=== PATIENT | female | born 1980 | race African-American/Black ===

== ENCOUNTER 2020-01-29 20:41 | Emergency (ER) | payer MEDICAID ==
[~2020-01-29] VITALS: Ht 162.6 cm; Wt 77.7 kg
[2020-01-30 01:08] LABS: BASOPHILS % 0.3 % (0.0-2.0); EOSINOPHILS % 0.3 % (0.0-5.0); HEMATOCRIT. 37.2 % (36.0-48.0); HEMOGLOBIN. 12.4 g/dL (12.0-16.0); LYMPHOCYTES % 23.9 % (20.0-50.0); MEAN CORPUSCULAR HEMOGLOBIN 27.4 pg (28.0-32.0); MEAN CORPUSCULAR VOLUME 82.2 fL (81.0-99.0); MEAN PLATELET VOLUME 8.3 fl (7.4-10.4); MONOCYTES % 6.2 % (2.0-8.0); NEUTROPHILS % 69.3 % (40.0-76.0); PLATELET 221 x1000/uL (130-400); RED BLOOD CELL COUNT 4.53 mill/uL (4.2-5.4); RED CELL DISTRIBUTION WIDTH 14.8 % (11.6-14.6)
[2020-01-30 01:14] LABS: CHLORIDE 107 mEq/L (98-107)
[2020-01-30 04:49] VITALS: BP 132/73
== END 2020-01-30 04:58 | disposition home or self-care (01) ==
LOC: ER 20:41
DX: G35 Multiple sclerosis (principal); I10 Essential (primary) hypertension; E78.00 Pure hypercholesterolemia, unspecified; J45.909 Unspecified asthma, uncomplicated; Z91.048 Other nonmedicinal substance allergy status; Z91.013 Allergy to seafood; Z98.890 Other specified postprocedural states
CPT/HCPCS: 36415; 70551; 80048; 81025; 84132; 85025; 93005; 99285